=== PATIENT | male | born 1980 | race Hispanic/Latino ===

== ENCOUNTER 2018-03-13 12:16 | Inpatient (IN) | payer OTHER ==
[~2018-03-13 12:16] MED LIST: AMIDATE IV ONE; QUELICIN IV ONE
[2018-03-13] MEDS ORDERED: DIPRIVAN 10 MG/ML 1,000 MG/100 ML BOTTLE IV ONE ×3 (12:24→15:29)
[2018-03-13] MEDS: DIPRIVAN 10 MG/ML 1,000 MG/100 ML BOTTLE IV SCH ×2 (12:30→19:01)
[2018-03-13 12:41] LABS: Basophils % (Auto) 0.7 % (0.0-1.8); Eosinophils # (Auto) 0.1 K/mm3 (0.0-0.4); Eosinophils % (Auto) 1.4 % (0.0-4.3); Hematocrit 39.7 % (35.5-45.6); Lymphocytes # (Auto) 1.9 K/mm3 (1.2-5.4); Lymphocytes % (Auto) 30.8 % (13.4-35.0); Mean Corpuscular HGB Conc 33 % (32-34); Mean Corpuscular Hemoglobin 29 pg (28-32); Mean Corpuscular Volume 87 fl (84-94); Monocytes # (Auto) 0.4 K/mm3 (0.0-0.8); Monocytes % (Auto) 6.6 % (0.0-7.3); Platelet Count 172 K/mm3 (140-440); Red Blood Count 4.55 M/mm3 (3.65-5.03); Red Cell Distribution Width 14.1 % (13.2-15.2)
[2018-03-13 12:46] LABS: INR 0.97 (0.87-1.13); Partial Thromboplastin Time 28.9 Sec. (24.2-36.6)
[2018-03-13 12:53] LABS: BUN/Creatinine Ratio 10; Blood Urea Nitrogen 10 mg/dL (9-20); Calcium 9.2 mg/dL (8.4-10.2); Hemolysis Index 15
[2018-03-13 12:55] LABS: Alanine Aminotransferase 14 units/L (7-56)
[2018-03-13 12:59] LABS: Bilirubin,Direct < 0.2 mg/dL (0-0.2)
[2018-03-13] MEDS ORDERED: ARTIFICIAL TEARS OPHTH OINT OU PRN (13:05)
[2018-03-13] MEDS ORDERED: VASELINE LIP THERAPY TP PRN (13:05)
[2018-03-13 13:23] LABS: Bilirubin,Urine NEG (Negative); Blood,Urine NEG (Negative); Color,Urine Yellow (Yellow); Mucus,Urine FEW /HPF; Protein,Urine <15 mg/dL mg/dL (Negative)
--- NOTE | 2018-03-13 13:31 | XRay Report ---
AP CHEST : 03/13/18 12:16:00 CLINICAL: Possible overdose. COMPARISON:None FINDINGS: Normal heart and pulmonary vessels.A nasogastric tube is curled in the esophagus and does not extend more distal than the mid esophagus. Tip is in the proximal one third of the esophagus and is directed toward the feet. Normal heart and pulmonary vessels. The lungs are normally expanded and clear. The bones and soft tissues are unremarkable. IMPRESSION: Nasogastric tube curled in the proximal esophagus.
--- NOTE | 2018-03-13 13:35 | Cat Scan Report ---
CT HEAD WITHOUT CONTRAST: 03/13/18 12:16:00 CLINICAL: Altered mental status. Possible overdose. TECHNIQUE: 2.5-mm noncontrast scans. COMPARISON:None FINDINGS: The ventricles and sulci are normal for age. No abnormal density. No mass or mass effect. No hemorrhage, edema or extra-axial collection. The sinuses are clear. Incidentally, a nasogastric tube is curled within the nasopharynx. Normal orbits and soft tissues. The calvarium and skull base are intact. IMPRESSION: Normal study with a nasogastric tube curled in the nasopharynx. No evidence of acute infarct or hemorrhage.
[2018-03-13] MEDS ORDERED: NACL 0.9% 500 ML IV SCH (14:00)
[2018-03-13] MEDS ORDERED: SODIUM CHLORIDE FLUSH SYRINGE 10 ML IV PRN (14:06)
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
[2018-03-13] MEDS ORDERED: fentaNYL DRIP Premix 2,000 MCG/100 ML BAG IV ONE (14:10)
[2018-03-13] MEDS ORDERED: NACL 0.9% 1000 ML 1,000 ML ONE (14:22)
[2018-03-13 14:34] LABS: Benzodiazepines Screen,Urine PRESUMPTIVE NEGATIVE; Cannabinoid Screen,Urine PRESUMPTIVE NEGATIVE; Cocaine Screen,Urine PRESUMPTIVE NEGATIVE; Methadone Screen,Urine PRESUMPTIVE NEGATIVE; Opiate Screen,Urine PRESUMPTIVE NEGATIVE
[2018-03-13] MEDS: fentaNYL DRIP Premix 2,000 MCG/100 ML BAG IV SCH ×2 (14:40→21:30)
[2018-03-13 14:49] LABS: Amphetamine Screen,Urine PRESUMPTIVE POSITIVE
[2018-03-13] MEDS ORDERED: ASPIRIN PR ONE (15:08)
[2018-03-13] MEDS ORDERED: APRESOLINE IV ONE (15:18)
[2018-03-13] MEDS ORDERED: NACL 0.9% 1000 ML 1,000 ML IV ONE (15:39)
--- NOTE | 2018-03-13 15:57 | History and Physical Report ---
History of Present Illness Date of admission: 03/13/18 14:06 Chief complaint: Unresponsive History of present illness: 37 YO Male with Nicotine Dependence presents to ED for evaluation. Pt is stuporous and unable to provide history. Pt history provided by his girlfriend. Pt was in his usual state of health and was walking from the parking lot at a local grocery store when he lost consciousness. EMS was notified, and patient was found to be stuporous. Pt was treated with narcan without improvement. Pt transported to [facility] for further care and evaluation. Pt seen and evaluated in ED and found to be encephalopathic, and unable to protect his airway. Pt intubated and placed on vent support. Pt admitted to ICU. Past History Past Medical History: other (Nicotine Dependence) Past Surgical History: No surgical history, Other (reviewed) Social history: smoking Family history: no significant family history Medications and Allergies Allergies Allergy/AdvReac Type Severity Reaction Status Date / Time No Known Allergies Allergy Unverified 06/15/15 16:55 Home Medications Medication Instructions Recorded Confirmed Last Taken Type No Known Home Medications [No 03/13/18 03/13/18 Unknown History Reported Home Medications] Active Meds: Active Medications Hydrophilic Ointment (Vaseline Lip Therapy) 1 applic TP Q2HR PRN PRN Reason: Dry Lips Dextrose/Sodium Chloride (D5/0.45ns) 1,000 mls @ 100 mls/hr IV DIRECT LORA Fentanyl Citrate (Fentanyl Drip Premix) 2,000 mcg in 100 mls @ 4 mls/hr IV TITR LORA; Protocol Last Titration: 03/13/18 15:15 Dose: 2 mcg/kg/hr, 8 mls/hr Propofol (Diprivan 10 Mg/Ml) 1,000 mg in 100 mls @ 2.4 mls/hr IV TITR LORA; Protocol Last Titration: 03/13/18 13:10 Dose: 50 mcg/kg/min, 24 mls/hr Sodium Chloride (Nacl 0.9% 1000 Ml) 1,000 mls @ 999 mls/hr IV BOLUS ONE Stop: 03/13/18 16:39 Last Admin: 03/13/18 14:00 Dose: 999 mls/hr Multi-Ingred Cream/Lotion/Oil/Oint (Artificial Tears Ophth Oint) 1 applic OU Q4HR PRN PRN Reason: Dry Eye(s) Sodium Chloride (Nacl 0.9% 500 Ml) 1 ml IV DIRECT LORA Last Admin: 03/13/18 14:00 Dose: 1 ml Sodium Chloride (Sodium Chloride Flush Syringe 10 Ml) 10 ml IV BID LORA Sodium Chloride (Sodium Chloride Flush Syringe 10 Ml) 10 ml IV PRN PRN PRN Reason: LINE FLUSH Review of Systems ROS unobtainable: due to mental status Exam - Constitutional Vitals: Temp Pulse Resp BP Pulse Ox 97.3 F L 55 L 18 166/90 100 03/13/18 12:16 03/13/18 15:30 03/13/18 15:30 03/13/18 15:30 03/13/18 15:30 General appearance: Present: mild distress - EENT Eyes: Present: PERRL ENT: hearing intact, clear oral mucosa - Neck Neck: Present: supple, normal ROM - Respiratory Respiratory effort: normal Respiratory: bilateral: diminished - Cardiovascular Heart Sounds: Present: S1 & S2. Absent: rub, click - Extremities Extremities: pulses symmetrical, No edema Peripheral Pulses: within normal limits - Abdominal General gastrointestinal: Present: soft, non-tender, non-distended, normal bowel sounds Male genitourinary: Present: normal - Integumentary Integumentary: Present: clear, warm, dry - Musculoskeletal Musculoskeletal: generalized weakness - Psychiatric Psychiatric: no appropriate mood/affect, no intact judgment & insight - Neurologic Neurologic: CNII-XII intact, moves all extremities, no gait normal Results - Labs CBC & Chem 7: 03/13/18 12:29 03/13/18 12:30 Labs: Abnormal lab results 03/13/18 03/13/18 03/13/18 Range/Units 12:30 12:30 13:49 POC ABG pCO2 49.1 H (35-45) POC ABG pO2 576 H (80-105) Glucose 110 H (75-100) mg/dL Total Protein 6.2 L (6.3-8.2) g/dL Assessment and Plan - Patient Problems (1) Respiratory failure Current Visit: Yes Status: Acute Qualifiers: Chronicity: acute Respiratory failure complication: hypoxia Qualified Code(s): J96.01 - Acute respiratory failure with hypoxia Plan to address problem: Supplemental oxygen, nebulizer therapy, wean vent as tolerated, daily SBT, ABG, Sedation holiday, Chest X ray, The high probability of a clinically significant, sudden or life threatening deterioration of the [Cardiac, pulmonary, renal] system(s) required my full and direct attention, intervention and personal management. The aggregate critical care time was [65] minutes. This time is in addition to time spent performing reported procedures but includes the following: [x] Data Review and interpretation [x] Patient assessment and monitoring of vital signs [x] Documentation [x] Medication orders and management (2) Encephalopathy Current Visit: Yes Status: Acute Plan to address problem: CT Head, neuro checks, Urine Drug screen, BAL (3) DVT prophylaxis Current Visit: Yes Status: Acute Plan to address problem: SCD to BLE while in bed.
[2018-03-13 16:08] LABS: Creatine Kinase MB 2.3 ng/mL (0.0-4.0)
[2018-03-13] MEDS ORDERED: SODIUM BICARBONATE FEEDTUBE PRN (16:08)
[2018-03-13] MEDS ORDERED: SIMPLE SYRUP FEEDTUBE PRN ×2 (16:08)
[2018-03-13] MEDS ORDERED: PANCREAZE DR 10,500 UNIT FEEDTUBE PRN (16:08)
--- NOTE | 2018-03-13 18:05 | Cat Scan Report ---
FINAL REPORT EXAM: CT ANGIO HEAD HISTORY: moitic pupils, obtunded/AMS TECHNIQUE: Head CT angiography with IV contrast 2D and 3D image reformation PRIORS: None. FINDINGS: The included carotid and basilar arteries reveal no significant abnormality. The visualized components of the [place] and its major branches are within normal limits to include the anterior, middle, and posterior cerebral arteries. Vessel caliber is normal diffusely without stenosis, occlusion, or aneurysm. No evidence of vascular malformation. IMPRESSION: No evidence of brain vascular pathology
--- NOTE | 2018-03-13 18:16 | Cat Scan Report ---
FINAL REPORT EXAM: CT ANGIO NECK HISTORY: moitic pupils, obtunded/AMS TECHNIQUE: Carotids/neck CT angiography with IV contrast 2D and 3D image reformation PRIORS: None. FINDINGS: Endotracheal tube in place with distal tip 2.5 cm above the [place]. The vertebral and carotid arteries are bilaterally patent diffusely. Vessel caliber is normal without stenosis, ulceration, or aneurysm. There is no definite filling defect to suggest dissection. The visualized portion of the carotid, vertebral, and basilar arteries are normal. IMPRESSION: No evidence of neck vascular pathology
[2018-03-14] MEDS: DIPRIVAN 10 MG/ML 1,000 MG/100 ML BOTTLE IV SCH (02:31)
[2018-03-14] MEDS: fentaNYL DRIP Premix 2,000 MCG/100 ML BAG IV SCH (03:09)
--- NOTE | 2018-03-14 04:50 | XRay Report ---
FINAL REPORT EXAM: XR CHEST 1V AP HISTORY: follow up respiratory failure TECHNIQUE: AP portable view(s) of the chest obtained. PRIORS: None. FINDINGS: Endotracheal tube terminates approximately 4 cm from the [place]. No mediastinal shift. Cardiac silhouette is not enlarged. No pneumothorax, effusion, or focal pulmonary opacity identified. No acute skeletal findings. IMPRESSION: Satisfactory appearance of patient's endotracheal tube. No pneumothorax.
[2018-03-14] MEDS: SODIUM CHLORIDE FLUSH SYRINGE 10 ML IV SCH ×3 (09:48→23:17)
--- NOTE | 2018-03-14 10:07 | Progress Note ---
Assessment and Plan Assessment and plan: Chief complaint: Unresponsive History of present illness: 37 YO Male with Nicotine Dependence presents to ED for evaluation. Pt is stuporous and unable to provide history. Pt history provided by his girlfriend. Pt was in his usual state of health and was walking from the parking lot at a local grocery store when he lost consciousness. EMS was notified, and patient was found to be stuporous. Pt was treated with narcan without improvement. Pt transported to [facility] for further care and evaluation. Pt seen and evaluated in ED and found to be encephalopathic, and unable to protect his airway. Pt intubated and placed on vent support. Pt admitted to ICU. Past History Past Medical History: other (Nicotine Dependence) Amphetamine abuse UTOX pos for meth will educational guidance counselor when mentation is improved Acute respiratory failure on MV Current Visit: Yes Status: Acute Qualifiers: Chronicity: acute Respiratory failure complication: hypoxia Qualified Code(s): J96.01 - Acute respiratory failure with hypoxia Plan to address problem: Supplemental oxygen, nebulizer therapy, wean vent as tolerated, daily SBT, ABG, Sedation holiday, Chest X ray, The high probability of a clinically significant, sudden or life threatening deterioration of the [Cardiac, pulmonary, renal] system(s) required my full and direct attention, intervention and personal management. The aggregate critical care time was [65] minutes. This time is in addition to time spent performing reported procedures but includes the following: [x] Data Review and interpretation [x] Patient assessment and monitoring of vital signs [x] Documentation [x] Medication orders and management (2)Toxic and metabolic Encephalopathy Current Visit: Yes Status: Acute Plan to address problem: CT Head, neuro checks, Urine Drug screen, BAL (3) DVT prophylaxis Current Visit: Yes Status: Acute Plan to address problem: SCD to BLE while in bed. Hospitalist Physical - Constitutional Vitals: Temp Pulse Resp BP Pulse Ox 100.0 F H 99 H 16 108/63 96 03/14/18 08:00 03/14/18 09:53 03/14/18 09:53 03/14/18 09:53 03/14/18 09:53 General appearance: Present: mild distress Results - Labs CBC & Chem 7: 03/13/18 12:29 03/13/18 12:30 Labs: Laboratory Last Values WBC 6.2 K/mm3 (4.5-11.0) 03/13/18 12: RBC 4.55 M/mm3 (3.65-5.03) 03/13/18 12:29 Hgb 13.0 gm/dl (11.8-15.2) 03/13/18 12:29 Hct 39.7 % (35.5-45.6) 03/13/18 12:29 MCV 87 fl (84-94) 03/13/18 12: MCH 29 pg (28-32) 03/13/18 12:29 MCHC 33 % (32-34) 03/13/18 12:29 RDW 14.1 % (13.2-15.2) 03/13/18 12:29 Plt Count 172 K/mm3 (140-440) 03/13/18 12:29 Lymph % (Auto) 30.8 % (13.4-35.0) 03/13/18 12: [place] % (Auto) 6.6 % (0.0-7.3) 03/13/18 12:29 Eos % (Auto) 1.4 % (0.0-4.3) 03/13/18 12:29 Baso % (Auto) 0.7 % (0.0-1.8) 03/13/18 12: Lymph # 1.9 K/mm3 (1.2-5.4) 03/13/18 12:29 [place] # 0.4 K/mm3 (0.0-0.8) 03/13/18 12:29 Eos # 0.1 K/mm3 (0.0-0.4) 03/13/18 12:29 Baso # 0.0 K/mm3 (0.0-0.1) 03/13/18 12:29 Seg Neutrophils % 60.5 % (40.0-70.0) 03/13/18 12: Seg Neutrophils # 3.8 K/mm3 (1.8-7.7) 03/13/18 12: PT 13.4 Sec. (12.2-14.9) 03/13/18 12:30 INR 0.97 (0.87-1.13) 03/13/18 12: APTT 28.9 Sec. (24.2-36.6) 03/13/18 12:30 Thrombin Time 16.8 Sec. (15.1-19.6) 03/13/18 12:30 D-Dimer 176.57 ng/mlDDU (0-234) 03/13/18 12:29 POC ABG pH 7.431 (7.35-7.45) 03/14/18 05:28 POC ABG pCO2 44.5 (35-45) 03/14/18 05:28 POC ABG pO2 249 (80-105) H 03/14/18 05:28 POC ABG HCO3 29.6 03/14/18 05:28 POC ABG Total CO2 31 03/14/18 05:28 POC ABG O2 Sat 100 03/14/18 05:28 POC ABG Base Excess 5 03/14/18 05:28 FiO2 60 % 03/14/18 05:28 Sodium 144 mmol/L (137-145) 03/13/18 12:30 Potassium 3.8 mmol/L (3.6-5.0) 03/13/18 12:30 Chloride 105.1 mmol/L (98-107) 03/13/18 12:30 Carbon Dioxide 25 mmol/L (22-30) 03/13/18 12:30 Anion Gap 18 mmol/L 03/13/18 12:30 BUN 10 mg/dL (9-20) 03/13/18 12:30 Creatinine 1.0 mg/dL (0.8-1.5) 03/13/18 12:30 Estimated GFR > 60 ml/min 03/13/18 12:30 BUN/Creatinine Ratio 10 % 03/13/18 12:30 Glucose 110 mg/dL (75-100) H 03/13/18 12:30 POC Glucose 76 (70-105) 03/13/18 21:49 Calcium 9.2 mg/dL (8.4-10.2) 03/13/18 12:30 Magnesium 2.00 mg/dL (1.7-2.3) 03/13/18 12:30 Total Bilirubin 0.40 mg/dL (0.1-1.2) 03/13/18 12:30 Direct Bilirubin < 0.2 mg/dL (0-0.2) 03/13/18 12:30 Indirect Bilirubin 0.2 mg/dL 03/13/18 12:30 AST 14 units/L (5-40) 03/13/18 12:30 ALT 14 units/L (7-56) 03/13/18 12:30 Alkaline Phosphatase 87 units/L (35-129) 03/13/18 12:30 Total Creatine Kinase 160 units/L (55-170) 03/13/18 12:30 CK-MB (CK-2) 2.3 ng/mL (0.0-4.0) 03/13/18 12:30 CK-MB (CK-2) Rel Index 1.4 (0-4) 03/13/18 12:30 Troponin T < 0.010 ng/mL (0.00-0.029) 03/13/18 12:30 Total Protein 6.2 g/dL (6.3-8.2) L 03/13/18 12:30 Albumin 4.0 g/dL (3.9-5) 03/13/18 12:30 Albumin/Globulin Ratio 1.8 % 03/13/18 12:30 Urine Color Yellow (Yellow) 03/13/18 12:48 Urine Turbidity Clear (Clear) 03/13/18 12:48 Urine pH 6.0 (5.0-7.0) 03/13/18 12:48 Ur Specific [place] 1.018 (1.003-1.030) 03/13/18 12:48 Urine Protein <15 mg/dl mg/dL (Negative) 03/13/18 12:48 Urine Glucose (UA) Neg mg/dL (Negative) 03/13/18 12:48 Urine Ketones Tr mg/dL (Negative) 03/13/18 12:48 Urine Blood Neg (Negative) 03/13/18 12:48 Urine Nitrite Neg (Negative) 03/13/18 12:48 Urine Bilirubin Neg (Negative) 03/13/18 12:48 Urine Urobilinogen 2.0 mg/dL (<2.0) 03/13/18 12:48 Ur Leukocyte Esterase Neg (Negative) 03/13/18 12:48 Urine WBC (Auto) 1.0 /HPF (0.0-6.0) 03/13/18 12:48 Urine RBC (Auto) 6.0 /HPF (0.0-6.0) 03/13/18 12:48 U Epithel Cells (Auto) < 1.0 /HPF (0-13.0) 03/13/18 12:48 Urine Mucus Few /HPF 03/13/18 12:48 Urine Opiates Screen Presumptive negative 03/13/18 Unknown Urine Methadone Screen Presumptive negative 03/13/18 Unknown Ur Barbiturates Screen Presumptive negative 03/13/18 Unknown Ur Phencyclidine Scrn Presumptive negative 03/13/18 Unknown Ur Amphetamines Screen Presumptive positive 03/13/18 Unknown U Benzodiazepines Scrn Presumptive negative 03/13/18 Unknown Urine Cocaine Screen Presumptive negative 03/13/18 Unknown U Marijuana (THC) Screen Presumptive negative 03/13/18 Unknown Drugs of Abuse Note Disclamer 03/13/18 Unknown
--- NOTE | 2018-03-14 15:37 | Consultation ---
History of Present Illness Consult date: 03/14/18 Requesting physician: ROSELYN ADAN Reason for consult: other (Acute Respiratory Failure; Drug OD) History of present illness: PULMONARY/CCM CONSULT NOTE (Full dictation # [id number]) Please see dictated notes for full details Past History Past Medical History: other (Nicotine Dependence) Past Surgical History: No surgical history, Other (reviewed) Social history: smoking Family history: no significant family history Medications and Allergies Allergies Allergy/AdvReac Type Severity Reaction Status Date / Time No Known Allergies Allergy Unverified 06/15/15 16:55 Home Medications Medication Instructions Recorded Confirmed Last Taken Type No Known Home Medications [No 03/13/18 03/13/18 Unknown History Reported Home Medications] Active Meds: Active Medications Lipase/Protease/Amylase (Pancreaze Dr 10,500 Unit) 1 each FEEDTUBE PRN PRN PRN Reason: For Clogged Feeding Tube Hydrophilic Ointment (Vaseline Lip Therapy) 1 applic TP Q2HR PRN PRN Reason: Dry Lips Dextrose/Sodium Chloride (D5/0.45ns) 1,000 mls @ 100 mls/hr IV DIRECT LORA Fentanyl Citrate (Fentanyl Drip Premix) 2,000 mcg in 100 mls @ 4 mls/hr IV TITR LORA; Protocol Last Titration: 03/14/18 07:30 Dose: 0 mcg/kg/hr, 0 mls/hr Propofol (Diprivan 10 Mg/Ml) 1,000 mg in 100 mls @ 2.4 mls/hr IV TITR LORA; Protocol Last Titration: 03/14/18 07:29 Dose: 0 mcg/kg/min, 0 mls/hr Multi-Ingred Cream/Lotion/Oil/Oint (Artificial Tears Ophth Oint) 1 applic OU Q4HR PRN PRN Reason: Dry Eye(s) Simple Syrup (Simple Syrup) 15 ml FEEDTUBE PRN PRN PRN Reason: Hypoglycemia Simple Syrup (Simple Syrup) 30 ml FEEDTUBE PRN PRN PRN Reason: Hypoglycemia Sodium Bicarbonate (Sodium Bicarbonate) 325 mg FEEDTUBE PRN PRN PRN Reason: For Clogged Feeding Tube Sodium Chloride (Nacl 0.9% 500 Ml) 1 ml IV DIRECT LORA Last Admin: 03/13/18 14:00 Dose: 1 ml Sodium Chloride (Sodium Chloride Flush Syringe 10 Ml) 10 ml IV BID LORA Last Admin: 03/14/18 12:10 Dose: Not Given Sodium Chloride (Sodium Chloride Flush Syringe 10 Ml) 10 ml IV PRN PRN PRN Reason: LINE FLUSH Physical Examination Vital signs: Vital Signs Temp Pulse Resp BP Pulse Ox 97.3 F L 93 H 18 131/80 99 03/13/18 12:16 03/13/18 12:16 03/13/18 12:16 03/13/18 12:16 03/13/18 12:16 Results - Laboratory Findings CBC and BMP: 03/13/18 12:29 03/13/18 12:30 ABG POC ABG pH 7.330 (7.35-7.45) L 03/14/18 09:58 POC ABG pCO2 52.8 (35-45) H 03/14/18 09:58 POC ABG pO2 86 (80-105) 03/14/18 09:58 POC ABG HCO3 27.9 03/14/18 09:58 POC ABG Total CO2 29 03/14/18 09:58 POC ABG O2 Sat 96 03/14/18 09:58 PT/INR, D-dimer PT 13.4 Sec. (12.2-14.9) 03/13/18 12:30 INR 0.97 (0.87-1.13) 03/13/18 12:30 D-Dimer 176.57 ng/mlDDU (0-234) 03/13/18 12:29 Abnormal lab findings: Abnormal Labs 03/13/18 03/13/18 03/13/18 12:30 12:30 13:49 POC ABG pH POC ABG pCO2 49.1 H POC ABG pO2 576 H Glucose 110 H Total Protein 6.2 L 03/14/18 03/14/18 05:28 09:58 POC ABG pH 7.330 L POC ABG pCO2 52.8 H POC ABG pO2 249 H Glucose Total Protein
[2018-03-14] MEDS: HABITROL TD SCH (17:02)
[2018-03-14] MEDS: D5/0.45NS 1,000 ML IV SCH (23:15)
[2018-03-15] MEDS ORDERED: TYLENOL PO PRN (06:10)
[2018-03-15 07:02] VITALS: BP 108/62
--- NOTE | 2018-03-15 07:17 | Consultation ---
PULMONARY CRITICAL CARE CONSULT NOTE CONSULTING PHYSICIAN: Dr. Smith. REASON FOR CONSULTATION: Acute respiratory failure, on mechanical ventilator support. CHIEF COMPLAINT AND HISTORY OF PRESENT ILLNESS: The patient is a 37-year-old male with past medical history significant only for nicotine dependence according to the notes and the patient who presented to the ER, stuporous, unable to provide history. They were told by his girlfriend that he was in his usual state of health when he lost consciousness. EMS was notified. He was found as described above. Narcan did not improve his mental status. In the ER, he was unable to protect his airway. He was intubated and placed on mechanical ventilator support. Earlier today, he was already on pressure support trial, was more appropriate, following commands and arterial blood gas was acceptable and instructions were given to extubate the patient. When I stopped by to see him, he was resting in the room. His mother was in the room with his aunt. He was unwilling or more likely unwilling to give me further history. This is as much of the history of presentation as I have. PAST MEDICAL HISTORY: Nicotine dependence. PAST SURGICAL HISTORY: Denies. I should mention he denies a history of prior intubation. MEDICATIONS: He was on at the time I stopped by to see were reviewed. Pertinent meds included the following: He had been on a fentanyl citrate drip at 1 mcg per 3-hour that was off. Nicotine 14 mg per day patch. Propofol drip had been turned off. ALLERGIES: No known drug allergies. DIET: Well-built gentleman. Denies acute weight loss or gain in the preceding few weeks to months. FAMILY AND SOCIAL HISTORY: Lives in the community, admits to tobacco use, about a 10+ pack year tobacco smoking history. Denies alcohol or illicit drug use or abuse. Family history, otherwise noncontributory. REVIEW OF SYSTEMS: Attempts to obtain review of systems was frustrated by the patient's unwillingness to discuss his health issues or otherwise they are as in the body of the history above. PHYSICAL EXAMINATION: VITAL SIGNS: At presentation in the Emergency Room, he was afebrile, temperature 97.3, pulse was 93, respiratory rate 18, blood pressure 131/80, oxygen sats were 99%, inspired oxygen concentration was not recorded. GENERAL: He is a young male, normocephalic, atraumatic, talking to me in full sentences, without significant respiratory distress. HEAD, EYES, EARS, NOSE AND THROAT: He is anicteric. No conjunctival erythema. Oropharynx is moist. No jugular venous distention, no thyromegaly, no palpable lymph nodes in the supraclavicular or submandibular lymph node chains. LUNGS: Auscultation of both lung lim unremarkable. Lungs are clear bilaterally. HEART: Heart sounds 1 and 2 are heard. They were regular in rate and rhythm at time of my evaluation. No rubs or murmurs. ABDOMEN: Soft. Bowel sounds are positive, nontender, no palpable hepatosplenomegaly. EXTREMITIES: Without overt digital clubbing, cyanosis, or pedal edema. The skin is of normal turgor. No cellulitis, no rash, no decubitus ulcers. NEUROLOGIC: Pupils are equal, round, about 4 mm, reactive to light. Extraocular muscle movements were intact. He moves all 4 extremities spontaneously. LABORATORY DATA: From my review are as follows: White cell count 6200, hemoglobin 13.0, hematocrit 39.7, platelet count 172. INR 0.97. Serum sodium 144, potassium 3.8, chloride 105, bicarb 25, BUN 10, creatinine 1.0, glucose 110. Liver function tests essentially within normal limits. Cardiac enzymes within normal limits. Urinalysis negative for nitrites and leukocyte esterase. Urine drug screen was presumptive negative. No microbiology data. RADIOGRAPHIC STUDIES: A CT scan was done of the head. I have reviewed the radiologist report of the CT of the head and essentially it is read as normal study for his age. A CTAs were done of the head and neck, again no evidence of any vascular pathology. His chest x-ray, I did review, essentially it shows an OG tube that was coiled in the esophagus post-intubation, ET tube was riding a little bit high also. Otherwise, no focal infiltrates, no overt cardiomegaly. A chest x-ray earlier today, most recent NG tube is out and an ET tube is at the level of the clavicular heads. ASSESSMENT: 1. Acute respiratory failure, status post mechanical ventilator support. 2. Acute encephalopathy, etiology unknown. 3. Tobacco use disorder. PLAN: I have implored him to stay in the hospital. We will transfer him to the regular floor. He will be observed overnight. It is still unclear what caused his decompensation. Neurology evaluation will be appropriate. We have spoken about tobacco cessation. He will be put on GI prophylaxis. Oral nutrition has resumed. Flu and pneumonia vaccination will be addressed per protocol. Thank you very much for the consult. We will follow along and make further recommendations as picture progresses/becomes clearer. He is much improved now and can transfer out of the ICU. JOB# [id number] CAMPBELL/ARVIND
--- NOTE | 2018-03-15 08:34 | XRay Report ---
AP CHEST: HISTORY: Followup respiratory failure The patient has been extubated since 03/14/18. Minor discoid atelectasis has developed in the lower lobes. Otherwise, the lungs are clear. No pleural effusion or pneumothorax. Heart and mediastinal structures remain unremarkable. IMPRESSION: Extubation. Minor atelectatic changes in the lower lobes. No acute process noted.
[2018-03-15] MEDS: D5/0.45NS 1,000 ML IV SCH (09:39)
[2018-03-15] MEDS: HABITROL TD SCH (10:16)
[2018-03-15] MEDS: SODIUM CHLORIDE FLUSH SYRINGE 10 ML IV SCH (10:17)
--- NOTE | 2018-03-15 10:33 | Discharge Summary ---
Providers - Providers Date of Admission: 03/13/18 14:06 Attending physician: ALOK DENNISON MD 03/13/18 13:05 Consult to Dietitian/Nutrition [CONS] Routine Physician Instructions: Reason For Exam: Reason for Consult: Write/Manage Tube Feeding 03/13/18 14:07 Consult to Physician [CONS] Routine Comment: Consulting Provider: NURYS WILSON Physician Instructions: Reason For Exam: respiratory failure 03/13/18 15:06 Speech Therapy Evaluation and Treat [CONS] Urgent Reason For Exam: intubation Primary care physician: ACID DIPPER Hospitalization Condition: Stable Exam - Constitutional Vitals: Temp Pulse Resp BP Pulse Ox 103.0 F H 106 H 18 108/62 94 03/15/18 06:02 03/15/18 06:02 03/15/18 06:02 03/15/18 06:02 03/15/18 06:02 Plan Follow up with: PRIMARY CAREMD [Primary Care Provider] - 3-5 Days Prescriptions: Nicotine [Habitrol] 14 mg TD QDAY #30 patch
[2018-03-15 14:10] LABS: Bilirubin,Urine NEG (Negative); Blood,Urine SM (Negative); Color,Urine Yellow (Yellow); Mucus,Urine FEW /HPF; Protein,Urine <15 mg/dL mg/dL (Negative); Urobilinogen,Urine < 2.0 mg/dL (<2.0)
== END 2018-03-15 14:00 | disposition home or self-care (01) | DRG 208 ==
LOC: ED 12:16 → CC1 14:06 → 3A 03-14 18:31
PROVIDERS: ADMIT Internal Medicine; ATTEND Internal Medicine
PROC: 5A1945Z Respiratory Ventilation, 24-96 Consecutive Hours (ICD-10-PCS; principal; 2018-03-13)
PROC: 0BH17EZ Insertion of Endotracheal Airway into Trachea, Via Natural or Artificial Opening (ICD-10-PCS; 2018-03-13)
PROC: 4A033R1 Measurement of Arterial Saturation, Peripheral, Percutaneous Approach (ICD-10-PCS; 2018-03-13)
DX: J96.00 Acute respiratory failure, unspecified whether with hypoxia or hypercapnia (principal); G92 Toxic encephalopathy; F17.200 Nicotine dependence, unspecified, uncomplicated; F15.10 Other stimulant abuse, uncomplicated; R00.1 Bradycardia, unspecified; R55 Syncope and collapse; I10 Essential (primary) hypertension; Z72.89 Other problems related to lifestyle
CPT/HCPCS: 36415; 36600; 70450; 70496; 70498; 71045; 80048; 80074; 80307; 81001; 82550; 82553; 82803; 82962; 83735; 84484; 85025; 85379; 85610; 85670; 85730; 87040; 87070; 87086; 87205; 93005; 93010; 94002; 94003; 96374; 96375; 99291; 99292; J0330; J2704; J3010; J7030; Q9967